=== PATIENT | male | born 1985 | race Caucasian/White ===

== ENCOUNTER 2017-04-09 00:51 | Inpatient (IN) | payer MEDICARE ==
[2017-04-09] MEDS ORDERED: diphenhydrAMINE HCL 50 MG CAPSULE PO PRN (00:55)
[2017-04-09] MEDS ORDERED: MENTHOL/PHENOL 1 EACH UD MM PRN (00:55)
[2017-04-09] MEDS ORDERED: METHADONE HCL 10 MG TABLET (FOR DETOX USE ONLY) PO ONE ×3 (00:55→23:00)
[2017-04-09] MEDS ORDERED: guaiFENesin/D-METHORPHAN HB 10 ML UNIT-DOSE CUPS PO PRN (00:55)
[2017-04-09] MEDS ORDERED: LOPERAMIDE HCL 2 MG CAPSULE PO PRN (00:55)
[2017-04-09] MEDS ORDERED: P-EPHED 60MG/TRIPROLIDI 2.5MG TABLET PO PRN (00:55)
[2017-04-09] MEDS ORDERED: ACETAMINOPHEN 325 MG TABLET (FP) PO PRN (00:55)
[2017-04-09] MEDS ORDERED: MAGNESIUM CITRATE 300 ML BOTTLE PO PRN (00:55)
[2017-04-09] MEDS ORDERED: IBUPROFEN 400 MG TABLET (FP) PO PRN (00:55)
[2017-04-09] MEDS ORDERED: MAGNESIUM HYDROX 2400MG/30ML ORAL SUSPENSION 30 ML CUP PO PRN (00:55)
[2017-04-09] MEDS ORDERED: MAG HYDROX/AL HYDROX/SIMETH 30 ML UNIT-DOSE CUP PO PRN (00:55)
[2017-04-09] MEDS ORDERED: hydrOXYzine PAMOATE 50 MG CAPSULE (FP) PO PRN (01:02)
--- NOTE | 2017-04-09 01:10 | HP ---
COWS - Scale Resting Pulse: 0= [place] 80 or Below Sweatin= Chills/Flushing Restless Observation: 1= Difficult to Sit Still Pupil Size: 1= Pupils >than Normal Bone or Joint Aches: 2= Severe Diffuse Aches Runny Nose/ Eye Tearin= Runny Nose/Eyes GI Upset > 30mins: 2= Nausea/Diarrhea Tremor Observation: 1= Tremor Bude, Not Seen Yawning Observation: 4= Several Times/Minute Anxiety or Irritability: 2=Irritable/Anxious Goose Flesh Skin: 3=Piloerection COWS Score: [address] [facility] Chief Complaint: Withdrawal symptoms Allergies/Adverse Reactions: Allergies Allergy/AdvReac Type Severity Reaction Status Date / Time No Known Allergies Allergy Verified 08/16/12 11:47 History of Present Illness: 32 y.o. man with an extensive history of opiate and cocaine dependence is here seeking detox. He reports he has a five year history of abstinence but states he relapsed recently. He states his last admission to detox and rehab was in 2011 Exam Limitations: No Limitations - Ebola screening Have you traveled outside of the country in the last 21 days: No - Review of Systems Constitutional: Loss of Appetite, Changes in sleep, Unexplained wgt Loss EENT: reports: No Symptoms Reported Respiratory: reports: No Symptoms reported Cardiac: reports: No Symptoms Reported GI: reports: Constipated : reports: No Symptoms Reported Musculoskeletal: reports: No Symptoms Reported Integumentary: reports: No Symptoms Reported Neuro: reports: No Symptoms reported Endocrine: reports: No Symptoms Reported Hematology: reports: No Symptoms Reported Psychiatric: reports: Mood/Affect Appropiate, Anxious, Depressed Other Systems: Reviewed and Negative Patient History - Patient Medical History Hx Anemia: No Hx Asthma: No Hx Chronic Obstructive Pulmonary Disease (COPD): No Hx Cancer: No Hx Cardiac Disorders: No Hx Congestive Heart Failure: No Hx Hypertension: No Hx Hypercholesterolemia: No Hx Pacemaker: No HX Cerebrovascular Accident: No Hx Seizures: No Hx Dementia: No Hx Diabetes: No Hx Gastrointestinal Disorders: No Hx Liver Disease: No Hx Genitourinary Disorders: No Hx Sexually Transmitted Disorders: No Hx Renal Disease (ESRD): No Hx Thyroid Disease: No Hx Human Immunodeficiency Virus (HIV): No Hx Hepatitis C: No Hx Depression: No Hx Suicide Attempt: No Hx Bipolar Disorder: No Hx Schizophrenia: No - Patient Surgical History Past Surgical History: No - PPD History Previous Implant?: Yes Documented Results: Negative w/o proof Implanted On Prior R Admission?: Yes Date: 08/18/12 PPD to be Administered?: Yes - Reproductive History Patient is a Female of Child Bearing Age (11 -55 yrs old): No - Smoking Cessation Smoking history: Current every day smoker Have you smoked in the past 12 months: Yes Aproximately how many cigarettes per day: 20 Hx Chewing Tobacco Use: No Initiated information on smoking cessation: Yes 'Breaking Loose' booklet given: 04/09/17 - Substance & Tx. History Hx Alcohol Use: No Hx Substance Use: Yes Substance Use Type: Cocaine, Heroin, Opiates Hx Substance Use Treatment: Yes (Last detox and rehab in 2011) - Substances Abused Cocaine Route: Inhalation Frequency: Daily Amount used: $200 Age of first use: 24 Date of Last Use: 04/08/17 Heroin Route: Injection Frequency: Daily Amount used: 20 bags Age of first use: 24 Date of Last Use: 04/08/17 Opana Route: Oral Frequency: Daily Amount used: 160mg Age of first use: 24 Date of Last Use: 04/08/17 Family Disease History - Family Disease History Family Disease History: Other: Father (Opiate dependence ) Admission Physical Exam S - Vital Signs Vital Signs: Vital Signs 04/09/17 04/09/17 04/09/17 01:15 01:27 03:30 Temperature 96.8 F L 96.7 F L Pulse Rate 70 55 L Respiratory 16 16 20 Rate Blood Pressure 154/71 125/75 - Physical General Appearance: Yes: Disheveled, Thin, Irritable HEENTM: Yes: Hearing grossly Normal, Normal Voice Respiratory: Yes: Chest Non-Tender, Lungs Clear, Normal Breath Sounds, No Respiratory Distress, No Accessory Muscle Use Neck: Yes: No masses,lesions,Nodules Breast: Yes: Breast Exam Deferred Cardiology: Yes: Regular Rhythm, Regular Rate Abdominal: Yes: Normal Bowel Sounds, Non Tender, Flat, Soft Genitourinary: Yes: Other (No complaints reported) Back: Yes: Normal Inspection Musculoskeletal: Yes: Gait Steady Extremities: Yes: Normal Inspection, Normal Range of Motion, Non-Tender Neurological: Yes: Alert, Normal Mood/Affect, Normal Response Integumentary: Yes: Normal Color, Dry, Warm Lymphatic: Yes: Within Normal Limits - Diagnostic (1) Opioid dependence with withdrawal Current Visit: Yes Status: Chronic (2) Cocaine dependence Current Visit: Yes Status: Chronic (3) Nicotine dependence Current Visit: Yes Status: Chronic Cleared for Admission [facility] - Detox or Rehab [facility] Level of Care: Medically Managed Detox Regimen/Protocol: Methadone [facility] Breath Alcohol Content Breath Alcohol Content: 0 Vital Signs - Vital Signs Vital Signs Refused: No Temperature: 96.8 F Temperature Source: Oral Pulse Rate: 70 Respiratory Rate: 16 Blood Pressure: 154/71 BP Location: Left Arm Blood Pressure Position: Sitting - Height Height: 5 ft 11 in - Weight Weight: 155 lb Weight Measurement Method: Standing Scale Body Mass Index (BMI): 21.6 Urine Drug Screen - Control Is Test Valid: Yes - Results Drug Screen Negative: No Urine Drug Screen Results: GERMÁN-Cocaine, OXY-Oxycodone
[2017-04-09 01:15] VITALS: BMI 21.6
[2017-04-09] MEDS ORDERED: PNEUMOC 13-VAL CONJ-DIP CRM/PF 0.5 ML DISP.SYRIN IM ONE (01:38)
[2017-04-09] MEDS: diazePAM 5 MG TABLET PO PRN ×2 (01:43→10:22)
[2017-04-09 06:04] VITALS: BP 154/71; PULSE 70; TEMP 96.8
[2017-04-09] MEDS ORDERED: NICOTINE 21 MG/24 HOURS TOPICAL PATCH TD SCH (10:00)
[2017-04-09] MEDS ORDERED: PRENATAL VITAMINS W/ FOLIC ACID TABLET (FP) PO SCH (10:00)
[2017-04-09] MEDS: NICOTINE POLACRILEX 4 MG GUM BC PRN ×2 (10:23→14:52)
--- NOTE | 2017-04-09 10:40 | CONSULT ---
[facility] Psychiatric Consult - Data Date of interview: 04/09/17 Admission source: [facility] Identifying data: Mr Whitfield is a 32 years old single male, father of a 3 years old son, employed as a truck driver teamster, living with family seeking detox treatment for opoid and cocaine. Told board writer:"cocaine is my biggest problem." Substance Abuse History: Significant for opoid and cocaine use. He started using heroin, opana and cocaine at age 24. He consumes 20 bags of heroin, 160 mg of opana and $200 worth of cocaine daily. He last used all 3 substances on Medical History: Unremarkable. Smokes cigaretes 1ppd Psychiatric History: Denies history of previous psychiatric treatment Physical/Sexual Abuse/Trauma History: Denies history of emotional, physical or sexual abuse as well as DV relationship Additional Comment: Reports history of 3 arrests including one felony conviction. Denies being on parole/probation Mental Status Exam - Mental Status Exam Alert and Oriented to: Time, Place, Person Cognitive Function: Fair Mood: Depressed Affect: Appropriate Speech Pattern: Clear Voice Loudness: Normal Thought Process: Intact, Goal Oriented Thought Disorder: Not Present Hallucinations: Denies Suicidal Ideation: Denies Homicidal Ideation: Denies Insight/Judgement: Fair Sleep: Poorly Appetite: Good Muscle strength/Tone: Normal Gait/Station: Normal Psychiatric Findings - Problem List ([place] 1, 2,3) (1) Substance induced mood disorder Current Visit: Yes Status: Acute (2) Substance-induced sleep disorder Current Visit: Yes Status: Acute (3) Opioid dependence with withdrawal Current Visit: Yes Status: Chronic (4) Cocaine dependence Current Visit: Yes Status: Chronic (5) Nicotine dependence Current Visit: Yes Status: Chronic - Initial Treatment Plan Initial Treatment Plan: Continue inpatient detoxification
--- NOTE | 2017-04-09 11:38 | PN ---
BHS COWS - Scale Resting Pulse: 0= [place] 80 or Below Sweatin= Chills/Flushing Restless Observation: 1= Difficult to Sit Still Pupil Size: 0= Normal to Room Light Bone or Joint Aches: 2= Severe Diffuse Aches Runny Nose/ Eye Tearin= Runny Nose/Eyes GI Upset > 30mins: 2= Nausea/Diarrhea Tremor Observation of Outstretched Hands: 2= Slight Tremor Visible Yawning Observation: 1= 1-2x During Session Anxiety or Irritability: 2=Irritable/Anxious Goose Flesh Skin: 3=Piloerection COWS Score: 16 BHS Progress Note (SOAP) Subjective: Body Aches, Anxious, Diarrhea, Fatigue, Tremors. Objective: PT. A & O X 2 (DISORIENTED ABOUT DAY / DATE). NO ACUTE DISTRESS. PT. DENIES CHEST PAIN. 04/09/17 11:35 Vital Signs Temperature 96.8 F L 04/09/17 06:03 Pulse Rate 70 04/09/17 06:03 Respiratory Rate 16 04/09/17 06:03 Blood Pressure 154/71 04/09/17 06:03 O2 Sat by Pulse Oximetry (%) ADMISSION LABS NOT YET COLLECTED. 04/09/17 11:38 04/09/17 11:38 Assessment: 04/09/17 11:37 WITHDRAWAL SYMPTOMS. Plan: CONTINUE DETOX.
[2017-04-09] MEDS ORDERED: PNEUMOCOCCAL 23 VACCINE 0.5 ML VIAL IM ONE (12:00)
--- NOTE | 2017-04-09 16:15 | DS ---
[facility] Summary Admission Date: DECLINED CONTINUING WITH DETOX FOR PERSONAL REASONS. STATES THAT HE IS ON SUBOXONE TREATMENT BUT STOPPED TAKING FOR A FEW DAYS BUT HAS BEEN USING HEROIN BEFORE COMING TO DETOX. STATES HE DID NOT MENTION SUBOXONE USE ON ADMISSION. PT REMINDED THE CONSEQUENCIES AND DANGERS OF INAPPROPRIATE USE OF SUBOXONE TREATMENT. ALERT O X 3. NAD. REMINDED TO FOLLOW UP WITH HIS CARE PROVIDER. Discharge Date: 04/09/17 - History Present History: Opioid Dependence Additional Comments: PT DECLINED TO CONTINUE WITH DETOX. PT STATES HE IS ON SUBOXONE TREATMENT BUT HAS NOT BEEN TAKING IT. HAS BEEN USING HEROIN FOR PAST FEW DAYS BEFORE COMING HERE FOR DETOX AND STATES HE FAILED TO INDICATE THIS ON ADMISSION. PT HAS BEEN REMINDED THE DANGERS AND CONSEQUENCIES OF INAPPROPRIATE USE OF SUBOXONE TREATMENT. ALERT O X 3. NAD. Pertinent Past History: DENIES PMHx OR PPSYCH Hx. - Physical Exam Results Vital Signs: Vital Signs Temperature 96.8 F L 04/09/17 06:03 Pulse Rate 70 04/09/17 06:03 Respiratory Rate 16 04/09/17 06:03 Blood Pressure 154/71 04/09/17 06:03 O2 Sat by Pulse Oximetry (%) Pertinent Admission Physical Exam Findings: WITHDRAWAL SX - Treatment Hospital Course: Discharged Condition Good Patient has Accepted a Rehab Referral to: PT STATES HE WILL GO BACK TO HIS SUBOXONE TREATMENT - Medication Discharge Medications: Ambulatory Orders No Home Medications 08/16/12 - Diagnosis (1) Nicotine dependence Status: Acute Qualifiers: Nicotine product type: cigarettes Substance use status: in withdrawal Qualified Code(s): F17.213 - Nicotine dependence, cigarettes, with withdrawal (2) Opioid dependence with withdrawal Status: Acute (3) Cocaine dependence, uncomplicated Status: Acute - AMA Did Patient Leave Against Medical Advice: Yes (AMA)
[2017-04-09] MEDS ORDERED: THIAMINE HCL 100 MG TABLET (FP) PO SCH (22:00)
[2017-04-10] MEDS ORDERED: METHADONE HCL 10 MG TABLET (FOR DETOX USE ONLY) PO ONE (10:00)
[2017-04-11] MEDS ORDERED: METHADONE HCL 5 MG TABLET (FOR DETOX USE ONLY) PO ONE (10:00)
[2017-04-12] MEDS ORDERED: METHADONE HCL 5 MG TABLET (FOR DETOX USE ONLY) PO ONE (10:00)
--- NOTE | 2017-04-12 10:00 | EKG ---
Test Reason : Blood Pressure : / mmHG Vent. Rate : 049 BPM Atrial Rate : 049 BPM P-R Int : 146 ms QRS Dur : 102 ms QT Int : 442 ms P-R-T Axes : 043 077 061 degrees QTc Int : 399 ms SINUS BRADYCARDIA OTHERWISE NORMAL ECG NO PREVIOUS ECGS AVAILABLE Confirmed by OLVIN BARBOZA MD ([id number]) on 04/12/2017 10:00:01 AM Referred By: Confirmed By:OLVIN BARBOZA MD
[2017-04-13] MEDS ORDERED: METHADONE HCL 10 MG TABLET (FOR DETOX USE ONLY) PO ONE (10:00)
[2017-04-14] MEDS ORDERED: METHADONE HCL 5 MG TABLET (FOR DETOX USE ONLY) PO ONE (06:00)
== END 2017-04-09 15:58 | disposition left against medical advice (07) | DRG 770 ==
LOC: YASAS 00:51 → Y3N 00:53
PROVIDERS: ADMIT Internal Medicine; ATTEND Internal Medicine
PROC: HZ2ZZZZ Detoxification Services for Substance Abuse Treatment (ICD-10-PCS; principal; 2017-04-09)
DX: F11.23 Opioid dependence with withdrawal (principal); F14.20 Cocaine dependence, uncomplicated; F17.210 Nicotine dependence, cigarettes, uncomplicated; F19.282 Other psychoactive substance dependence with psychoactive substance-induced sleep disorder
CPT/HCPCS: 93005; 93010

== ENCOUNTER 2017-06-21 19:34 | Inpatient (IN) | payer SELFPAY ==
[2017-06-21 20:03] VITALS: BMI 21.9
--- NOTE | 2017-06-21 20:34 | HP ---
COWS - Scale Resting Pulse: 1= [place] 81-100 Sweatin= Chills/Flushing Restless Observation: 3= Extraneous Movement Pupil Size: 1= Pupils >than Normal Bone or Joint Aches: 2= Severe Diffuse Aches Runny Nose/ Eye Tearin= Runny Nose/Eyes GI Upset > 30mins: 3= Vomiting/Diarrhea Tremor Observation: 2= Slight Tremor Visible Yawning Observation: 1= 1-2x During Session Anxiety or Irritability: 2=Irritable/Anxious Goose Flesh Skin: 3=Piloerection COWS Score: 21 Admission ROS S - [facility] Chief Complaint: WITHDRAWAL SYMPTOMS Allergies/Adverse Reactions: Allergies Allergy/AdvReac Type Severity Reaction Status Date / Time No Known Allergies Allergy Verified 08/16/12 11:47 History of Present Illness: 32 Y.O. MAN WITH A HISTORY OF HEROIN AND COCAINE DEPENDENCE IS HERE SEEKING DETOX. HE WAS LAST HERE FOR DETOX IN 03/2017 BUT LEFT AMA AFTER ONE DAY. HE WAS PREVIOUSLY PRESCRIBED SUBOXONE AND IT WAS LAST FILLED ON 04/07/17 BUT REPORTS HE COULD NOT AFFORD THE MEDICATION AND STARTED USING HEROIN AGAIN. HE HAS AN EXTENSIVE HISTORY OF HEROIN DEPENDENCE AND REPORTS HAVING A 4 YEAR HISTORY OF ABSTINENCE WHILE ON SUBOXONE BUT STATES HE RELAPSED RECENTLY IN March. Exam Limitations: No Limitations - Ebola screening Have you traveled outside of the country in the last 21 days: No Have you had contact with anyone from an Ebola affected area: No Have you been sick,other than usual withdrawal symptoms: No Do you have a fever: No - Review of Systems Constitutional: Chills, Diaphoresis, Loss of Appetite, Changes in sleep EENT: reports: Tearing, Nose Congestion Respiratory: reports: No Symptoms reported Cardiac: reports: No Symptoms Reported GI: reports: Poor Appetite : reports: No Symptoms Reported Musculoskeletal: reports: No Symptoms Reported Integumentary: reports: No Symptoms Reported Neuro: reports: No Symptoms reported Endocrine: reports: No Symptoms Reported Hematology: reports: No Symptoms Reported Psychiatric: reports: Judgement Intact, Mood/Affect Appropiate, Anxious Other Systems: Reviewed and Negative Patient History - Patient Medical History Hx Anemia: No Hx Asthma: No Hx Chronic Obstructive Pulmonary Disease (COPD): No Hx Cancer: No Hx Cardiac Disorders: No Hx Congestive Heart Failure: No Hx Hypertension: No Hx Hypercholesterolemia: No Hx Pacemaker: No HX Cerebrovascular Accident: No Hx Seizures: No Hx Dementia: No Hx Diabetes: No Hx Gastrointestinal Disorders: No Hx Liver Disease: No Hx Genitourinary Disorders: No Hx Sexually Transmitted Disorders: No Hx Renal Disease (ESRD): No Hx Thyroid Disease: No Hx Human Immunodeficiency Virus (HIV): No Hx Hepatitis C: No Hx Depression: No Hx Suicide Attempt: No Hx Bipolar Disorder: No Hx Schizophrenia: No - Patient Surgical History Past Surgical History: No Hx Neurologic Surgery: No Hx Cataract Extraction: No Hx Cardiac Surgery: No Hx Lung Surgery: No Hx Breast Surgery: No Hx Breast Biopsy: No Hx Abdominal Surgery: No Hx Appendectomy: No Hx Cholecystectomy: No Hx Genitourinary Surgery: No Hx Section: No Hx Orthopedic Surgery: No Anesthesia Reaction: No - PPD History Previous Implant?: No Documented Results: Negative w/o proof Date: 08/18/12 PPD to be Administered?: Yes - Reproductive History Patient is a Female of Child Bearing Age (11 -55 yrs old): No - Smoking Cessation Smoking history: Current every day smoker Have you smoked in the past 12 months: Yes Aproximately how many cigarettes per day: 40 Hx Chewing Tobacco Use: No Initiated information on smoking cessation: No 'Breaking Loose' booklet given: 06/21/17 - Substance & Tx. History Hx Alcohol Use: No Hx Substance Use: Yes Substance Use Type: Cocaine, Heroin Hx Substance Use Treatment: Yes (DETOX: 03/2017-LEFT AFTER ONE DAY. REHAB: 2011) - Substances Abused Heroin Route: Inhalation Frequency: Daily Amount used: 20 BAGS Age of first use: 24 Date of Last Use: 06/20/17 Crack Route: Smoking Frequency: Daily Amount used: 1gm Age of first use: 31 Date of Last Use: 06/20/17 Family Disease History - Family Disease History Family Disease History: Other: Father (Opiate dependence ) Admission Physical Exam BHS - Vital Signs Vital Signs: Vital Signs - 24 hr 06/21/17 19:53 Temperature 97.2 F L Pulse Rate 81 Respiratory 18 Rate Blood Pressure 134/79 - Physical General Appearance: Yes: Disheveled, Sweating, Anxious HEENTM: Yes: Hearing grossly Normal, Normocephalic, Normal Voice Respiratory: Yes: Chest Non-Tender, Lungs Clear, Normal Breath Sounds, No Respiratory Distress, No Accessory Muscle Use Neck: Yes: No masses,lesions,Nodules, Trachea in good position Breast: Yes: Breast Exam Deferred Cardiology: Yes: Regular Rhythm, Regular Rate Abdominal: Yes: Normal Bowel Sounds, Non Tender, Flat, Soft Genitourinary: Yes: Other (NO COMPLAINTS REPORTED) Back: Yes: Normal Inspection Musculoskeletal: Yes: full range of Motion, Gait Steady, Pelvis Stable Extremities: Yes: Normal Capillary Refill, Normal Inspection, Normal Range of Motion, Non-Tender Neurological: Yes: Alert, Motor Strength 5/5, Normal Mood/Affect, Normal Response Integumentary: Yes: Normal Color, Dry, Warm Lymphatic: Yes: Within Normal Limits - Diagnostic (1) Cocaine dependence, uncomplicated Current Visit: Yes Status: Chronic (2) Nicotine dependence Current Visit: Yes Status: Chronic Qualifiers: Nicotine product type: cigarettes Substance use status: in withdrawal Qualified Code(s): F17.213 - Nicotine dependence, cigarettes, with withdrawal; F17.213 - Nicotine dependence, cigarettes, with withdrawal (3) Opioid dependence with withdrawal Current Visit: Yes Status: Chronic Cleared for Admission [facility] - Detox or Rehab [facility] Level of Care: Medically Managed Detox Regimen/Protocol: Methadone [facility] Breath Alcohol Content Breath Alcohol Content: 0 Urine Drug Screen - Results Drug Screen Negative: No Urine Drug Screen Results: GERMÁN-Cocaine, OPI-Opiates
[2017-06-21] MEDS ORDERED: P-EPHED 60MG/TRIPROLIDI 2.5MG TABLET PO PRN (20:48)
[2017-06-21] MEDS ORDERED: IBUPROFEN 400 MG TABLET (FP) PO PRN (20:48)
[2017-06-21] MEDS ORDERED: MAG HYDROX/AL HYDROX/SIMETH 30 ML UNIT-DOSE CUP PO PRN (20:48)
[2017-06-21] MEDS ORDERED: LOPERAMIDE HCL 2 MG CAPSULE PO PRN (20:48)
[2017-06-21] MEDS ORDERED: hydrOXYzine PAMOATE 50 MG CAPSULE (FP) PO PRN (20:48)
[2017-06-21] MEDS ORDERED: guaiFENesin/D-METHORPHAN HB 10 ML UNIT-DOSE CUPS PO PRN (20:48)
[2017-06-21] MEDS ORDERED: ACETAMINOPHEN 325 MG TABLET (FP) PO PRN (20:48)
[2017-06-21] MEDS ORDERED: MAGNESIUM HYDROX 2400MG/30ML ORAL SUSPENSION 30 ML CUP PO PRN (20:48)
[2017-06-21] MEDS ORDERED: MENTHOL/PHENOL 1 EACH UD MM PRN (20:48)
[2017-06-21] MEDS ORDERED: METHADONE HCL 10 MG TABLET (FOR DETOX USE ONLY) PO ONE ×2 (20:48→23:00)
[2017-06-21] MEDS ORDERED: diphenhydrAMINE HCL 50 MG CAPSULE PO PRN (20:48)
[2017-06-21] MEDS ORDERED: MAGNESIUM CITRATE 300 ML BOTTLE PO PRN (20:48)
[2017-06-21] MEDS: diazePAM 5 MG TABLET PO PRN (21:50)
[2017-06-21] MEDS: NICOTINE POLACRILEX 4 MG GUM BUC PRN (21:54)
[2017-06-21] MEDS: THIAMINE HCL 100 MG TABLET (FP) PO SCH (22:09)
[2017-06-22] MEDS ORDERED: METHADONE HCL 10 MG TABLET (FOR DETOX USE ONLY) PO ONE (10:00)
[2017-06-22 10:09] LABS: MCH 29.1 pg (25.7-33.7); MCHC 33.2 g/dl (32.0-35.9); MEAN CELL VOLUME 87.7 fl (80-96); MEAN PLT VOLUME 8.5 fl (7.5-11.1); PLATELET COUNT 352 K/MM3 (134-434); RDW 13.3 % (11.9-15.9); WHITE BLOOD COUNT 8.4 K/mm3 (4.0-10.0)
[2017-06-22 10:15] LABS: ALBUMIN 3.5 g/dl (3.4-5.0); ANION GAP 6 (8-16); CALCIUM 8.7 mg/dL (8.5-10.1); CO2 30 mmol/L (21-32); CREATININE 0.9 mg/dL (0.7-1.3); GLUCOSE,RANDOM 94 mg/dL (74-106); SGOT/AST 10 U/L (15-37); SGPT/ALT 20 U/L (12-78)
[2017-06-22 10:16] LABS: ALK PHOS 64 U/L (45-117); BILIRUBIN,TOTAL 0.4 mg/dL (0.2-1.0)
[2017-06-22] MEDS: PRENATAL VITAMINS W/ FOLIC ACID TABLET (FP) PO SCH (11:02)
[2017-06-22] MEDS: NICOTINE 21 MG/24 HOURS TOPICAL PATCH TD SCH (11:03)
[2017-06-22] MEDS: diazePAM 5 MG TABLET PO PRN ×3 (11:03→22:06)
[2017-06-22 11:21] LABS: HIV 1 & 2 AB NEGATIVE; HIV 1 AGp24 NEGATIVE
--- NOTE | 2017-06-22 11:35 | CONSULT ---
[facility] Psychiatric Consult - Data Date of interview: 06/22/17 Admission source: [facility] Identifying data: Readmission to [facility] for this 32 y/o male seking detox treatment on for heroin and cocaine dependence.Patient is single,a father of one,domiciled and currently employed. Substance Abuse History: Discussed with patient in this session.Mr Whitfield confirms this pattern of substance abuse. Smoking Cessation. Smoking history: Current every day smoker. Have you smoked in the past 12 months: Yes. Aproximately how many cigarettes per day: 40. Hx Chewing Tobacco Use: No. Initiated information on smoking cessation: No. 'Breaking Loose' booklet given : 06/21/17. - Substance & Tx. History. Hx Alcohol Use: No. Hx Substance Use: Yes. Substance Use Type: Cocaine, Heroin. Hx Substance Use Treatment: Yes ( DETOX: 03/2017-LEFT AFTER ONE DAY. REHAB: 08/2012). - Substances Abused. Heroin. Route: Inhalation. Frequency: Daily. Amount used: 20 BAGS. Age of first use: 24. Date of Last Use: 06/20/17. Crack. Route: Smoking. Frequency: Daily. Amount used: 1gm. Age of first use: 31. Date of Last Use: 06/20/17 Medical History: Patient endorses good general health. Psychiatric History: Patient denies. Physical/Sexual Abuse/Trauma History: No reported history of abuse. Additional Comment: Urine Drug Screen Results: GERMÁN-Cocaine, OPI-Opiates.Noted. Mental Status Exam - Mental Status Exam Alert and Oriented to: Time, Place, Person Cognitive Function: Good Patient Appearance: Well Groomed Mood: Hopeful, Euthymic Affect: Appropriate, Normal Range Patient Behavior: Fatigued, Appropriate, Cooperative Speech Pattern: Clear Voice Loudness: Normal Thought Process: Intact, Goal Oriented Thought Disorder: Not Present Hallucinations: Denies Suicidal Ideation: Denies Homicidal Ideation: Denies Insight/Judgement: Poor Sleep: Well Appetite: Good Muscle strength/Tone: Normal Gait/Station: Normal Psychiatric Findings - Problem List ([place] 1, 2,3) (1) Opioid dependence with withdrawal Current Visit: Yes Status: Acute (2) Cocaine dependence, uncomplicated Current Visit: Yes Status: Acute (3) Nicotine dependence Current Visit: Yes Status: Acute Qualifiers: Nicotine product type: cigarettes Substance use status: in withdrawal Qualified Code(s): F17.213 - Nicotine dependence, cigarettes, with withdrawal; F17.213 - Nicotine dependence, cigarettes, with withdrawal (4) Substance induced mood disorder Current Visit: Yes Status: Acute - Initial Treatment Plan Initial Treatment Plan: Psychoeducation.Detoxification.Observation.
--- NOTE | 2017-06-22 12:02 | PN ---
BHS COWS - Scale Resting Pulse: 0= [place] 80 or Below Sweatin= Chills/Flushing Restless Observation: 3= Extraneous Movement Pupil Size: 2= Moderately Dilated Bone or Joint Aches: 2= Severe Diffuse Aches Runny Nose/ Eye Tearin= Runny Nose/Eyes GI Upset > 30mins: 3= Vomiting/Diarrhea Tremor Observation of Outstretched Hands: 2= Slight Tremor Visible Yawning Observation: 1= 1-2x During Session Anxiety or Irritability: 2=Irritable/Anxious Goose Flesh Skin: 0=Smooth Skin COWS Score: 18 BHS Progress Note (SOAP) Subjective: ALERT,IRRITABLE,ANXIOUS,INTERRUPTED SLEEP,TREMOR,PAIN IN THE BODY JOINT AND BACK Objective: 06/22/17 12:00 Vital Signs Temperature 97.2 F L 06/22/17 10:03 Pulse Rate 69 06/22/17 10:03 Respiratory Rate 18 06/22/17 10:03 Blood Pressure 127/71 06/22/17 10:03 O2 Sat by Pulse Oximetry (%) EKG NSR,NORMAL ECG Laboratory Last Values WBC 8.4 K/mm3 (4.0-10.0) 06/22/17 07:00 RBC 4.61 M/mm3 (4.00-5.60) 06/22/17 07:00 Hgb 13.4 GM/dL (11.7-16.9) 06/22/17 07:00 Hct 40.5 % (35.4-49) 06/22/17 07:00 MCV 87.7 fl (80-96) 06/22/17 07:00 MCH 29.1 pg (25.7-33.7) 06/22/17 07:00 MCHC 33.2 g/dl (32.0-35.9) 06/22/17 07:00 RDW 13.3 % (11.9-15.9) 06/22/17 07:00 Plt Count 352 K/MM3 (134-434) D 06/22/17 07:00 MPV 8.5 fl (7.5-11.1) D 06/22/17 07:00 Sodium 141 mmol/L (136-145) 06/22/17 07:00 Potassium 4.3 mmol/L (3.5-5.1) 06/22/17 07:00 Chloride 105 mmol/L (98-107) 06/22/17 07:00 Carbon Dioxide 30 mmol/L (21-32) 06/22/17 07:00 Anion Gap 6 (8-16) L 06/22/17 07:00 BUN 23 mg/dL (7-18) H D 06/22/17 07:00 Creatinine 0.9 mg/dL (0.7-1.3) D 06/22/17 07:00 Creat Clearance w eGFR > 60 (>60) 06/22/17 07:00 Random Glucose 94 mg/dL (74-106) 06/22/17 07:00 Calcium 8.7 mg/dL (8.5-10.1) 06/22/17 07:00 Total Bilirubin 0.4 mg/dL (0.2-1.0) D 06/22/17 07:00 AST 10 U/L (15-37) L D 06/22/17 07:00 ALT 20 U/L (12-78) D 06/22/17 07:00 Alkaline Phosphatase 64 U/L (45-117) 06/22/17 07:00 Total Protein 7.0 g/dl (6.4-8.2) 06/22/17 07:00 Albumin 3.5 g/dl (3.4-5.0) 06/22/17 07:00 HIV 1&2 Antibody Screen Negative 06/22/17 07:00 HIV P24 Antigen Negative 06/22/17 07:00 Assessment: 06/22/17 12:01 WITHDRAWAL SYMPTOM Plan: CONTINUE DETOX
[2017-06-22] MEDS: NICOTINE POLACRILEX 4 MG GUM BUC PRN ×2 (18:01→22:08)
[2017-06-22] MEDS: THIAMINE HCL 100 MG TABLET (FP) PO SCH (22:06)
[2017-06-23] MEDS: diazePAM 5 MG TABLET PO PRN ×3 (09:09→22:35)
[2017-06-23] MEDS ORDERED: METHADONE HCL 5 MG TABLET (FOR DETOX USE ONLY) PO ONE (10:00)
[2017-06-23] MEDS: NICOTINE 21 MG/24 HOURS TOPICAL PATCH TD SCH (10:49)
[2017-06-23] MEDS: PRENATAL VITAMINS W/ FOLIC ACID TABLET (FP) PO SCH (10:50)
[2017-06-23] MEDS: NICOTINE POLACRILEX 4 MG GUM BUC PRN ×2 (10:51→13:52)
--- NOTE | 2017-06-23 12:15 | PN ---
S CIWA - CIWA Score Nausea/Vomitin Muscle Tremors: 3 Anxiety: 2 Agitation: 2 Paroxysmal Sweats: 1-Minimal Palms Moist Orientation: 0-Oriented Tacttile Disturbances: 1-Very Mild Itch/Numbness Auditory Disturbances: 1-Very Mild Visual Disturbances: 0-None Headache: 2-Mild CIWA-Ar Total Score: 15 BHS COWS - Scale Resting Pulse: 0= [place] 80 or Below Sweatin= Chills/Flushing Restless Observation: 3= Extraneous Movement Pupil Size: 1= Pupils >than Normal Bone or Joint Aches: 2= Severe Diffuse Aches Runny Nose/ Eye Tearin= Nasal Congestion GI Upset > 30mins: 2= Nausea/Diarrhea Tremor Observation of Outstretched Hands: 2= Slight Tremor Visible Yawning Observation: 1= 1-2x During Session Anxiety or Irritability: 2=Irritable/Anxious Goose Flesh Skin: 0=Smooth Skin COWS Score: 15 BHS Progress Note (SOAP) Subjective: alert,irritable,anxious,interrupted sleep,pain in the body and back Objective: 06/23/17 12:13 Vital Signs Temperature 96.9 F L 06/23/17 10:55 Pulse Rate 74 06/23/17 10:55 Respiratory Rate 20 06/23/17 10:55 Blood Pressure 148/85 06/23/17 10:55 O2 Sat by Pulse Oximetry (%) Laboratory Last Values WBC 8.4 K/mm3 (4.0-10.0) 06/22/17 07:00 RBC 4.61 M/mm3 (4.00-5.60) 06/22/17 07:00 Hgb 13.4 GM/dL (11.7-16.9) 06/22/17 07:00 Hct 40.5 % (35.4-49) 06/22/17 07:00 MCV 87.7 fl (80-96) 06/22/17 07:00 MCH 29.1 pg (25.7-33.7) 06/22/17 07:00 MCHC 33.2 g/dl (32.0-35.9) 06/22/17 07:00 RDW 13.3 % (11.9-15.9) 06/22/17 07:00 Plt Count 352 K/MM3 (134-434) D 06/22/17 07:00 MPV 8.5 fl (7.5-11.1) D 06/22/17 07:00 Sodium 141 mmol/L (136-145) 06/22/17 07:00 Potassium 4.3 mmol/L (3.5-5.1) 06/22/17 07:00 Chloride 105 mmol/L (98-107) 06/22/17 07:00 Carbon Dioxide 30 mmol/L (21-32) 06/22/17 07:00 Anion Gap 6 (8-16) L 06/22/17 07:00 BUN 23 mg/dL (7-18) H D 06/22/17 07:00 Creatinine 0.9 mg/dL (0.7-1.3) D 06/22/17 07:00 Creat Clearance w eGFR > 60 (>60) 06/22/17 07:00 Random Glucose 94 mg/dL (74-106) 06/22/17 07:00 Calcium 8.7 mg/dL (8.5-10.1) 06/22/17 07:00 Total Bilirubin 0.4 mg/dL (0.2-1.0) D 06/22/17 07:00 AST 10 U/L (15-37) L D 06/22/17 07:00 ALT 20 U/L (12-78) D 06/22/17 07:00 Alkaline Phosphatase 64 U/L (45-117) 06/22/17 07:00 Total Protein 7.0 g/dl (6.4-8.2) 06/22/17 07:00 Albumin 3.5 g/dl (3.4-5.0) 06/22/17 07:00 RPR Titer Nonreactive (NONREACTIVE) 06/22/17 07:00 Hepatitis C Antibody <0.1 s/co ratio (0.0-0.9) 06/21/17 07:00 HIV 1&2 Antibody Screen Negative 06/22/17 07:00 HIV P24 Antigen Negative 06/22/17 07:00 Assessment: 06/23/17 12:14 withdrawal symptom Plan: continue detox,less withdrawal,medication adjust
--- NOTE | 2017-06-23 13:16 | EKG ---
Test Reason : Blood Pressure : / mmHG Vent. Rate : 075 BPM Atrial Rate : 075 BPM P-R Int : 160 ms QRS Dur : 100 ms QT Int : 376 ms P-R-T Axes : 069 077 060 degrees QTc Int : 419 ms NORMAL SINUS RHYTHM NORMAL ECG WHEN COMPARED WITH ECG OF 09-APR-2017 00:51, VENT. RATE HAS INCREASED BY 26 BPM Confirmed by RUBEN SAUCEDO MD ([id number]) on 06/23/2017 1:16:15 PM Referred By: Confirmed By:RUBEN SAUCEDO MD
[2017-06-23 15:54] LABS: PH,URINE 7.5 (5.0-8.0); URINE APPEARANCE CLEAR; URINE BILIRUBIN NEGATIVE (NEGATIVE); URINE BLOOD NEGATIVE (NEGATIVE); URINE COLOR LT. YELLOW; URINE GLUCOSE (UA) NEGATIVE (NEGATIVE); URINE KETONE NEGATIVE (NEGATIVE); URINE NITRITE NEGATIVE (NEGATIVE); URINE PROTEIN NEGATIVE (NEGATIVE); URINE UROBILINOGEN 0.2 mg/dL (0.2-1.0)
[2017-06-23 20:21] LABS: URINE LEUK ESTERASE Negative (NEGATIVE)
[2017-06-23] MEDS: THIAMINE HCL 100 MG TABLET (FP) PO SCH (22:37)
--- NOTE | 2017-06-24 08:31 | PN ---
S Progress Note (SOAP) Subjective: alert,irritable,anxious,interrupted sleep Objective: 06/24/17 08:30 Vital Signs Temperature 96.4 F L 06/24/17 06:00 Pulse Rate 60 06/24/17 06:00 Respiratory Rate 18 06/24/17 06:00 Blood Pressure 129/79 06/24/17 06:00 O2 Sat by Pulse Oximetry (%) Assessment: 06/24/17 08:31 withdrawal symptom Plan: continue detox,discharge in am
[2017-06-24] MEDS: NICOTINE POLACRILEX 4 MG GUM BUC PRN (09:55)
[2017-06-24] MEDS: diazePAM 5 MG TABLET PO PRN (09:56)
[2017-06-24] MEDS: PRENATAL VITAMINS W/ FOLIC ACID TABLET (FP) PO SCH (09:56)
[2017-06-24] MEDS: NICOTINE 21 MG/24 HOURS TOPICAL PATCH TD SCH (09:58)
[2017-06-24] MEDS ORDERED: METHADONE HCL 5 MG TABLET (FOR DETOX USE ONLY) PO ONE (10:00)
[2017-06-24] MEDS ORDERED: METHADONE HCL 10 MG TABLET (FOR DETOX USE ONLY) PO ONE (10:00)
[2017-06-24 11:01] VITALS: BP 115/81; PULSE 89; TEMP 97.5
--- NOTE | 2017-06-24 11:18 | PN ---
BHS Progress Note (SOAP) Subjective: alert,irritable,anxious,interrupted sleep,pain in the body and back Objective: 06/24/17 11:17 Vital Signs Temperature 97.5 F L 06/24/17 11:00 Pulse Rate 89 06/24/17 11:00 Respiratory Rate 16 06/24/17 11:00 Blood Pressure 115/81 06/24/17 11:00 O2 Sat by Pulse Oximetry (%) withdrawal symptom Assessment: 06/24/17 11:17 withdrawal symptom Plan: continue detox
--- NOTE | 2017-06-24 11:22 | PN ---
S Progress Note Note: patient did not want to complete treatment,signed release ama,seen by counselor
--- NOTE | 2017-06-24 11:26 | DS ---
[facility] Detox Discharge Summary Admission Date: 06/21/17 Discharge Date: 06/24/17 - History Present History: Cocaine Dependence, Opioid Dependence Additional Comments: patient did not want to complete treatment,signed release ama,did not want to wait Pertinent Past History: nicotine dependence - Physical Exam Results Vital Signs: Vital Signs Temperature 97.5 F L 06/24/17 11:00 Pulse Rate 89 06/24/17 11:00 Respiratory Rate 16 06/24/17 11:00 Blood Pressure 115/81 06/24/17 11:00 O2 Sat by Pulse Oximetry (%) Pertinent Admission Physical Exam Findings: withdrawal symptom - AMA Did Patient Leave Against Medical Advice: Yes
[2017-06-25] MEDS ORDERED: METHADONE HCL 5 MG TABLET (FOR DETOX USE ONLY) PO ONE (06:00)
[2017-06-25] MEDS ORDERED: METHADONE HCL 10 MG TABLET (FOR DETOX USE ONLY) PO ONE (10:00)
[2017-06-26] MEDS ORDERED: METHADONE HCL 5 MG TABLET (FOR DETOX USE ONLY) PO ONE (06:00)
== END 2017-06-24 11:45 | disposition left against medical advice (07) | DRG 770 ==
LOC: YASAS 19:34 → Y6N 20:29
PROVIDERS: ADMIT Internal Medicine; ATTEND Internal Medicine
PROC: HZ2ZZZZ Detoxification Services for Substance Abuse Treatment (ICD-10-PCS; principal; 2017-06-21)
DX: F11.23 Opioid dependence with withdrawal (principal); F14.20 Cocaine dependence, uncomplicated; F17.213 Nicotine dependence, cigarettes, with withdrawal; F19.24 Other psychoactive substance dependence with psychoactive substance-induced mood disorder
CPT/HCPCS: 36415; 80053; 81003; 85027; 86593; 86803; 87389; 93005; 93010

== ENCOUNTER 2018-12-07 13:15 | Inpatient (IN) | payer OTHER ==
[2018-12-07 13:26] VITALS: BMI 22.0
--- NOTE | 2018-12-07 16:39 | HP ---
COWS - Scale Resting Pulse: 1= [place] 81-100 Sweatin=Flushed/Facial Moisture Restless Observation: 3= Extraneous Movement Pupil Size: 1= Pupils >than Normal Bone or Joint Aches: 2= Severe Diffuse Aches Runny Nose/ Eye Tearin= Runny Nose/Eyes GI Upset > 30mins: 0= None Tremor Observation: 1= Tremor [place], Not Seen Yawning Observation: 1= 1-2x During Session Anxiety or Irritability: 2=Irritable/Anxious Goose Flesh Skin: 3=Piloerection COWS Score: 18 CIWA Score - Admission Criteria OASAS Guidelines: Admission for Medically Managed Detox: Requires at least one of the followin. CIWA greater than 12 2. Seizures within the past 24 hours 3. Delirium tremens within the past 24 hours 4. Hallucinations within the past 24 hours 5. Acute intervention needed for co occurring medical disorder 6. Acute intervention needed for co occurring psychiatric disorder 7. Severe withdrawal that cannot be handled at a lower level of care (continued vomiting, continued diarrhea, abnormal vital signs) requiring intravenous medication and/or fluids 8. Admission ROS [facility] Chief Complaint: 33 yo no medical problems, with h/o heroin use since . Was without using for several years from about age 24 to about age 28. Since then pt states has been using heroin IV. Last time in detox was about 18 months- relapsed shortly after. Was on Suboxone for a few months but does not like it as much. Would like to be in a methadone program. Heroin- uses 30 bags/day IV Cocaine- 1 gram/day DUR- no controlled substances Utox: leticia, met, fen, opi,oxy, fen, TRISTEN- neg pt in severe withdrawal- will give 20mg STAT and 20mg tonight and 30mg tomorrow and 20mg the day after etc... Allergies/Adverse Reactions: Allergies Allergy/AdvReac Type Severity Reaction Status Date / Time No Known Allergies Allergy Verified 12/07/18 15:39 Exam Limitations: No Limitations - Ebola screening Have you traveled outside of the country in the last 21 days: No Have you had contact with anyone from an Ebola affected area: No Have you been sick,other than usual withdrawal symptoms: No Do you have a fever: No - Review of Systems Constitutional: No Symptoms Reported Integumentary: reports: Other (abscess and cellulitis- was in hospital for a 2 days, left 3 days) Patient History - Patient Medical History Hx Anemia: No Hx Asthma: No Hx Chronic Obstructive Pulmonary Disease (COPD): No Hx Cancer: No Hx Cardiac Disorders: No Hx Congestive Heart Failure: No Hx Hypertension: No Hx Hypercholesterolemia: No Hx Pacemaker: No HX Cerebrovascular Accident: No Hx Seizures: No Hx Dementia: No Hx Diabetes: No Hx Gastrointestinal Disorders: No Hx Liver Disease: No Hx Genitourinary Disorders: No Hx Sexually Transmitted Disorders: No Hx Renal Disease (ESRD): No Hx Thyroid Disease: No Hx Human Immunodeficiency Virus (HIV): No Hx Hepatitis C: No Hx Depression: No Hx Suicide Attempt: No Hx Bipolar Disorder: No Hx Schizophrenia: No - Patient Surgical History Past Surgical History: No Hx Neurologic Surgery: No Hx Cataract Extraction: No Hx Cardiac Surgery: No Hx Lung Surgery: No Hx Breast Surgery: No Hx Breast Biopsy: No Hx Abdominal Surgery: No Hx Appendectomy: No Hx Cholecystectomy: No Hx Genitourinary Surgery: No Hx Section: No Hx Orthopedic Surgery: No Anesthesia Reaction: No - PPD History Previous Implant?: Yes Documented Results: Negative w/proof Date: 06/23/17 PPD to be Administered?: Yes - Reproductive History Patient : No - Smoking Cessation Smoking history: Current every day smoker Have you smoked in the past 12 months: Yes Aproximately how many cigarettes per day: 20 Hx Chewing Tobacco Use: No Initiated information on smoking cessation: Yes 'Breaking Loose' booklet given: 12/07/18 - Substances Abused Heroin Route: Injection Frequency: Daily Amount used: 30 bags Age of first use: 21 Date of Last Use: 12/06/18 Alcohol Route: Oral Frequency: Daily Amount used: 1/5 vodka Age of first use: 15 Date of Last Use: 12/07/18 Cocaine Route: Smoking Frequency: Daily Amount used: 1 gram Age of first use: 21 Date of Last Use: 12/06/18 Family Disease History - Family Disease History Family Disease History: Other: Father (Opiate dependence ) Admission Physical Exam B[facility] - Vital Signs Vital Signs: Vital Signs - 24 hr 12/07/18 13:22 Temperature 97.5 F L Pulse Rate 77 Respiratory 18 Rate Blood Pressure 152/83 - Physical General Appearance: Yes: Within Normal Limits, Anxious HEENTM: Yes: Within Normal Limits Respiratory: Yes: Within Normal Limits Neck: Yes: Within Normal Limits Abdominal: Yes: Within Normal Limits, Normal Bowel Sounds Back: Yes: Within Normal Limits Musculoskeletal: Yes: Within Normal Limits Extremities: Yes: Other (cellulitis and abscess L wrist area- redness- pt with bandage to area) Neurological: Yes: Within Normal Limits, Other Integumentary: Yes: Other (cellulitis and abscess L wrist area- redness- pt with bandage to area) - Diagnostic (1) Abscess Current Visit: Yes Status: Acute (2) Opioid dependence with withdrawal Current Visit: No Status: Acute BHS Breath Alcohol Content Breath Alcohol Content: 0 Urine Drug Screen - Results Drug Screen Negative: No Urine Drug Screen Results: LETICIA-Cocaine, OPI-Opiates, MET-Methamphetamine, OXY- Oxycodone, FEN-Fentanyl Inpatient Rehab Admission - Rehab Decision to Admit Inpatient rehab admission?: No
[2018-12-07] MEDS ORDERED: MAGNESIUM CITRATE 300 ML BOTTLE PO PRN (16:46)
[2018-12-07] MEDS ORDERED: MENTHOL/PHENOL 1 EACH UD MM PRN (16:46)
[2018-12-07] MEDS ORDERED: MAG HYDROX/AL HYDROX/SIMETH 30 ML UNIT-DOSE CUP PO PRN (16:46)
[2018-12-07] MEDS ORDERED: BISMUTH SUBSALICYLATE 524 MG/30 ML UD PO PRN (16:46)
[2018-12-07] MEDS ORDERED: MELATONIN 5 MG TABLETS PO PRN (16:46)
[2018-12-07] MEDS ORDERED: ACETAMINOPHEN 325 MG TABLET (FP) PO PRN ×2 (16:46)
[2018-12-07] MEDS ORDERED: traZODone HCL 50 MG TABLET (FP) PO PRN (16:46)
[2018-12-07] MEDS ORDERED: MAGNESIUM HYDROX 2400MG/30ML ORAL SUSPENSION 30 ML CUP PO PRN (16:46)
[2018-12-07] MEDS ORDERED: IBUPROFEN 400 MG TABLET (FP) PO PRN (16:46)
[2018-12-07] MEDS ORDERED: ONDANSETRON *ODT* 4 MG TABLET SL PRN (16:46)
[2018-12-07] MEDS ORDERED: DICYCLOMINE HCL 10 MG CAPSULE PO PRN (16:46)
[2018-12-07] MEDS ORDERED: hydrOXYzine PAMOATE 25 MG CAPSULE (FP) PO PRN (16:46)
[2018-12-07] MEDS ORDERED: METHADONE HCL 10 MG TABLET (FOR DETOX USE ONLY) PO ONE ×2 (17:30→23:00)
[2018-12-07] MEDS: AMOX TR/POT CLAV 875MG/125MG TABLETS (FP) PO SCH (19:16)
[2018-12-07] MEDS: THIAMINE HCL 100 MG TABLET (FP) PO SCH (22:06)
[2018-12-07] MEDS: cloNIDine HCL 0.1 MG TABLET PO PRN (22:06)
[2018-12-08] MEDS: hydrOXYzine PAMOATE 50 MG CAPSULE (FP) PO PRN ×4 (04:25→23:14)
[2018-12-08] MEDS: AMOX TR/POT CLAV 875MG/125MG TABLETS (FP) PO SCH ×2 (08:09→17:11)
[2018-12-08] MEDS: diazePAM 5 MG TABLET PO PRN ×3 (09:09→23:10)
[2018-12-08] MEDS: METHOCARBAMOL 500 MG TABLET PO PRN (09:09)
[2018-12-08] MEDS: cloNIDine HCL 0.1 MG TABLET PO PRN ×3 (09:09→23:14)
[2018-12-08] MEDS: PRENATAL VITAMINS W/ FOLIC ACID TABLET (FP) PO SCH (09:35)
[2018-12-08] MEDS ORDERED: METHADONE HCL 10 MG TABLET (FOR DETOX USE ONLY) PO ONE (10:00)
[2018-12-08 10:51] LABS: ALBUMIN 3.1 g/dl (3.4-5.0); ALK PHOS 80 U/L (45-117); ANION GAP 7 MMOL/L (8-16); BILIRUBIN,TOTAL 0.2 mg/dL (0.2-1); BLOOD UREA NITROGEN 10 mg/dL (7-18); CALCIUM 8.5 mg/dL (8.5-10.1); CHLORIDE 106 mmol/L (98-107); CO2 27 mmol/L (21-32); CREATININE 0.7 mg/dL (0.55-1.3); GLUCOSE,RANDOM 84 mg/dL (74-106); POTASSIUM 4.5 mmol/L (3.5-5.1); SGOT/AST 28 U/L (15-37); SGPT/ALT 40 U/L (13-61); SODIUM 139 mmol/L (136-145); TOT PROT 7.2 g/dl (6.4-8.2)
[2018-12-08 10:57] LABS: HEMATOCRIT 37.1 % (35.4-49); HEMOGLOBIN 12.5 GM/dL (11.7-16.9); MCH 29.2 pg (25.7-33.7); MCHC 33.7 g/dl (32.0-35.9); MEAN CELL VOLUME 86.5 fl (80-96); MEAN PLT VOLUME 7.8 fl (7.5-11.1); PLATELET COUNT 403 K/MM3 (134-434); RBC 4.29 M/mm3 (4.00-5.60); RDW 13.1 % (11.9-15.9); WHITE BLOOD COUNT 7.8 K/mm3 (4.0-10.0)
[2018-12-08] MEDS: NICOTINE 21 MG/24 HOURS TOPICAL PATCH TD SCH (11:08)
--- NOTE | 2018-12-08 11:48 | PN ---
BHS COWS - Scale Resting Pulse: 0= [place] 80 or Below Sweatin= Chills/Flushing Restless Observation: 1= Difficult to Sit Still Pupil Size: 1= Pupils >than Normal Bone or Joint Aches: 2= Severe Diffuse Aches Runny Nose/ Eye Tearin= Runny Nose/Eyes GI Upset > 30mins: 2= Nausea/Diarrhea Tremor Observation of Outstretched Hands: 2= Slight Tremor Visible Yawning Observation: 2= >3x During Session Anxiety or Irritability: 2=Irritable/Anxious Goose Flesh Skin: 0=Smooth Skin COWS Score: 15 BHS Progress Note (SOAP) Subjective: alert,irritable,anxious,interrupted sleep,pain in the body and back,tremor Objective: 12/08/18 11:47 Vital Signs Temperature 96.6 F L 12/08/18 09:28 Pulse Rate 73 12/08/18 09:28 Respiratory Rate 16 12/08/18 09:28 Blood Pressure 180/107 H 12/08/18 09:28 O2 Sat by Pulse Oximetry (%) Assessment: 12/08/18 11:48 withdrawal symptom 12/08/18 11:52 patient stated he drink occasionally ,twice a week,not every day drinking but use heroin and cocaine iv every day Plan: continue detox,methadone regimen,valium 10 mgs po q 4hrs prn for 72 hrs
[2018-12-08 14:57] LABS: URINE APPEARANCE CLOUDY; URINE BILIRUBIN NEGATIVE (NEGATIVE); URINE COLOR YELLOW; URINE GLUCOSE (UA) NEGATIVE (NEGATIVE); URINE KETONE NEGATIVE (NEGATIVE); URINE LEUK ESTERASE NEGATIVE (NEGATIVE); URINE NITRITE NEGATIVE (NEGATIVE); URINE PROTEIN NEGATIVE (NEGATIVE); URINE UROBILINOGEN 0.2 mg/dL (0.2-1.0)
[2018-12-08] MEDS: THIAMINE HCL 100 MG TABLET (FP) PO SCH (23:10)
[2018-12-09] MEDS: cloNIDine HCL 0.1 MG TABLET PO PRN ×3 (04:55→22:43)
[2018-12-09] MEDS: diazePAM 5 MG TABLET PO PRN ×4 (04:55→19:11)
[2018-12-09] MEDS: AMOX TR/POT CLAV 875MG/125MG TABLETS (FP) PO SCH ×2 (07:59→17:59)
[2018-12-09] MEDS ORDERED: METHADONE HCL 10 MG TABLET (FOR DETOX USE ONLY) PO ONE (10:00)
[2018-12-09] MEDS: NICOTINE 21 MG/24 HOURS TOPICAL PATCH TD SCH (10:08)
[2018-12-09] MEDS: PRENATAL VITAMINS W/ FOLIC ACID TABLET (FP) PO SCH (10:08)
--- NOTE | 2018-12-09 10:34 | PN ---
S COWS - Scale Resting Pulse: 1= [place] 81-100 Sweatin= Chills/Flushing Restless Observation: 1= Difficult to Sit Still Pupil Size: 1= Pupils >than Normal Bone or Joint Aches: 2= Severe Diffuse Aches Runny Nose/ Eye Tearin= Runny Nose/Eyes GI Upset > 30mins: 2= Nausea/Diarrhea Tremor Observation of Outstretched Hands: 2= Slight Tremor Visible Yawning Observation: 2= >3x During Session Anxiety or Irritability: 2=Irritable/Anxious Goose Flesh Skin: 0=Smooth Skin COWS Score: 16 S Progress Note (SOAP) Subjective: alert,irritable,anxious,interrupted sleep,pain in the body,anxious Objective: 12/09/18 10:33 Vital Signs Temperature 97.3 F L 12/09/18 09:56 Pulse Rate 83 12/09/18 09:56 Respiratory Rate 20 12/09/18 09:56 Blood Pressure 144/75 12/09/18 09:56 O2 Sat by Pulse Oximetry (%) 12/09/18 10:34 Laboratory Last Values WBC 7.8 K/mm3 (4.0-10.0) 12/08/18 07:00 RBC 4.29 M/mm3 (4.00-5.60) 12/08/18 07:00 Hgb 12.5 GM/dL (11.7-16.9) 12/08/18 07:00 Hct 37.1 % (35.4-49) 12/08/18 07:00 MCV 86.5 fl (80-96) 12/08/18 07:00 MCH 29.2 pg (25.7-33.7) 12/08/18 07:00 MCHC 33.7 g/dl (32.0-35.9) 12/08/18 07:00 RDW 13.1 % (11.9-15.9) 12/08/18 07:00 Plt Count 403 K/MM3 (134-434) 12/08/18 07:00 MPV 7.8 fl (7.5-11.1) 12/08/18 07:00 Sodium 139 mmol/L (136-145) 12/08/18 07:00 Potassium 4.5 mmol/L (3.5-5.1) 12/08/18 07:00 Chloride 106 mmol/L (98-107) 12/08/18 07:00 Carbon Dioxide 27 mmol/L (21-32) 12/08/18 07:00 Anion Gap 7 MMOL/L (8-16) L 12/08/18 07:00 BUN 10 mg/dL (7-18) 12/08/18 07:00 Creatinine 0.7 mg/dL (0.55-1.3) 12/08/18 07:00 Creat Clearance w eGFR 129.09 (>60) 12/08/18 07:00 Random Glucose 84 mg/dL (74-106) 12/08/18 07:00 Calcium 8.5 mg/dL (8.5-10.1) 12/08/18 07:00 Total Bilirubin 0.2 mg/dL (0.2-1) 12/08/18 07:00 AST 28 U/L (15-37) 12/08/18 07:00 ALT 40 U/L (13-61) 12/08/18 07:00 Alkaline Phosphatase 80 U/L (45-117) 12/08/18 07:00 Total Protein 7.2 g/dl (6.4-8.2) 12/08/18 07:00 Albumin 3.1 g/dl (3.4-5.0) L 12/08/18 07:00 Urine Color Yellow 12/08/18 11:40 Urine Appearance Cloudy 12/08/18 11:40 Urine pH 7.0 (5.0-8.0) 12/08/18 11:40 Ur Specific [place] 1.016 (1.010-1.035) 12/08/18 11:40 Urine Protein Negative (NEGATIVE) 12/08/18 11:40 Urine Glucose (UA) Negative (NEGATIVE) 12/08/18 11:40 Urine Ketones Negative (NEGATIVE) 12/08/18 11:40 Urine Blood Negative (NEGATIVE) 12/08/18 11:40 Urine Nitrite Negative (NEGATIVE) 12/08/18 11:40 Urine Bilirubin Negative (NEGATIVE) 12/08/18 11:40 Urine Urobilinogen 0.2 mg/dL (0.2-1.0) 12/08/18 11:40 Ur Leukocyte Esterase Negative (NEGATIVE) 12/08/18 11:40 RPR Titer Nonreactive (NONREACTIVE) 12/08/18 07:00 HIV 1&2 Antibody Screen Negative 12/08/18 07:00 HIV P24 Antigen Negative 12/08/18 07:00 Assessment: 12/09/18 10:34 withdrawal symptom Plan: continue detox
[2018-12-09] MEDS: hydrOXYzine PAMOATE 50 MG CAPSULE (FP) PO PRN ×3 (11:54→19:11)
[2018-12-09] MEDS: METHOCARBAMOL 500 MG TABLET PO PRN (22:43)
[2018-12-09] MEDS: traZODone HCL 100 MG TABLET (FP) PO PRN (22:43)
[2018-12-09] MEDS: THIAMINE HCL 100 MG TABLET (FP) PO SCH (22:43)
[2018-12-10] MEDS: diazePAM 5 MG TABLET PO PRN ×5 (04:51→22:04)
[2018-12-10] MEDS: hydrOXYzine PAMOATE 50 MG CAPSULE (FP) PO PRN ×3 (04:51→15:22)
[2018-12-10] MEDS: AMOX TR/POT CLAV 875MG/125MG TABLETS (FP) PO SCH ×2 (06:26→17:26)
[2018-12-10] MEDS: METHOCARBAMOL 500 MG TABLET PO PRN (09:08)
[2018-12-10] MEDS ORDERED: METHADONE HCL 10 MG TABLET (FOR DETOX USE ONLY) PO ONE (10:00)
[2018-12-10] MEDS: PRENATAL VITAMINS W/ FOLIC ACID TABLET (FP) PO SCH (10:45)
[2018-12-10] MEDS: NICOTINE 21 MG/24 HOURS TOPICAL PATCH TD SCH (10:46)
--- NOTE | 2018-12-10 13:17 | PN ---
[facility] Progress Note (SOAP) Subjective: Muscle aches and weakness, mild tremors and irritability Objective: 12/10/18 13:16 Vital Signs - 8 hr 12/10/18 12/10/18 08:27 09:41 Temperature 96.1 F L 96.6 F L Pulse Rate 83 90 Respiratory 20 16 Rate Blood Pressure 139/82 127/67 Laboratory Last Values WBC 7.8 K/mm3 (4.0-10.0) 12/08/18 07:00 RBC 4.29 M/mm3 (4.00-5.60) 12/08/18 07:00 Hgb 12.5 GM/dL (11.7-16.9) 12/08/18 07:00 Hct 37.1 % (35.4-49) 12/08/18 07:00 MCV 86.5 fl (80-96) 12/08/18 07:00 MCH 29.2 pg (25.7-33.7) 12/08/18 07:00 MCHC 33.7 g/dl (32.0-35.9) 12/08/18 07:00 RDW 13.1 % (11.9-15.9) 12/08/18 07:00 Plt Count 403 K/MM3 (134-434) 12/08/18 07:00 MPV 7.8 fl (7.5-11.1) 12/08/18 07:00 Sodium 139 mmol/L (136-145) 12/08/18 07:00 Potassium 4.5 mmol/L (3.5-5.1) 12/08/18 07:00 Chloride 106 mmol/L (98-107) 12/08/18 07:00 Carbon Dioxide 27 mmol/L (21-32) 12/08/18 07:00 Anion Gap 7 MMOL/L (8-16) L 12/08/18 07:00 BUN 10 mg/dL (7-18) 12/08/18 07:00 Creatinine 0.7 mg/dL (0.55-1.3) 12/08/18 07:00 Creat Clearance w eGFR 129.09 (>60) 12/08/18 07:00 Random Glucose 84 mg/dL (74-106) 12/08/18 07:00 Calcium 8.5 mg/dL (8.5-10.1) 12/08/18 07:00 Total Bilirubin 0.2 mg/dL (0.2-1) 12/08/18 07:00 AST 28 U/L (15-37) 12/08/18 07:00 ALT 40 U/L (13-61) 12/08/18 07:00 Alkaline Phosphatase 80 U/L (45-117) 12/08/18 07:00 Total Protein 7.2 g/dl (6.4-8.2) 12/08/18 07:00 Albumin 3.1 g/dl (3.4-5.0) L 12/08/18 07:00 Urine Color Yellow 12/08/18 11:40 Urine Appearance Cloudy 12/08/18 11:40 Urine pH 7.0 (5.0-8.0) 12/08/18 11:40 Ur Specific [place] 1.016 (1.010-1.035) 12/08/18 11:40 Urine Protein Negative (NEGATIVE) 12/08/18 11:40 Urine Glucose (UA) Negative (NEGATIVE) 12/08/18 11:40 Urine Ketones Negative (NEGATIVE) 12/08/18 11:40 Urine Blood Negative (NEGATIVE) 12/08/18 11:40 Urine Nitrite Negative (NEGATIVE) 12/08/18 11:40 Urine Bilirubin Negative (NEGATIVE) 12/08/18 11:40 Urine Urobilinogen 0.2 mg/dL (0.2-1.0) 12/08/18 11:40 Ur Leukocyte Esterase Negative (NEGATIVE) 12/08/18 11:40 RPR Titer Nonreactive (NONREACTIVE) 12/08/18 07:00 HIV 1&2 Antibody Screen Negative 12/08/18 07:00 HIV P24 Antigen Negative 12/08/18 07:00 Labs noted Assessment: 12/10/18 13:17 Withdrawal sx Plan: Continue detox
[2018-12-10] MEDS: NICOTINE POLACRILEX 4 MG GUM BUC PRN ×2 (13:24→22:06)
--- NOTE | 2018-12-10 14:35 | PN ---
B[facility] Progress Note Note: Patient is on Augmentin for infected left wound r/t IVDU. Bacitracin has been ordered to be applied BID.
[2018-12-10] MEDS ORDERED: BACITRACIN 15 GM TUBE TOPICAL OINTMENT TP ONE (15:29)
[2018-12-10] MEDS ORDERED: BACITRACIN 0.9 GM PACKET TP SCH (22:00)
[2018-12-10] MEDS: traZODone HCL 100 MG TABLET (FP) PO PRN (22:02)
[2018-12-10] MEDS: THIAMINE HCL 100 MG TABLET (FP) PO SCH (22:02)
[2018-12-10 22:20] VITALS: BP 139/90; PULSE 99; TEMP 97.5
[2018-12-11] MEDS ORDERED: METHADONE HCL 5 MG TABLET (FOR DETOX USE ONLY) PO ONE (06:00)
[2018-12-11] MEDS: AMOX TR/POT CLAV 875MG/125MG TABLETS (FP) PO SCH (07:00)
== END 2018-12-11 07:00 | disposition home or self-care (01) | DRG 773 ==
LOC: YASAS 13:15 → Y6N 17:16
PROVIDERS: ADMIT Surgery; ATTEND Surgery
PROC: HZ2ZZZZ Detoxification Services for Substance Abuse Treatment (ICD-10-PCS; principal; 2018-12-07)
DX: F11.23 Opioid dependence with withdrawal (principal); F10.230 Alcohol dependence with withdrawal, uncomplicated; F14.20 Cocaine dependence, uncomplicated; F17.210 Nicotine dependence, cigarettes, uncomplicated; L03.114 Cellulitis of left upper limb
CPT/HCPCS: 36415; 80053; 81003; 85027; 86593; 87389; J0735

== ENCOUNTER 2019-03-25 10:01 | Inpatient (IN) | payer OTHER ==
[2019-03-25 11:43] VITALS: BMI 22.0
--- NOTE | 2019-03-25 13:17 | HP ---
COWS - Scale Resting Pulse: 0= [place] 80 or Below Sweatin= Chills/Flushing Restless Observation: 1= Difficult to Sit Still Pupil Size: 0= Normal to Room Light Bone or Joint Aches: 2= Severe Diffuse Aches Runny Nose/ Eye Tearin= Nasal Congestion GI Upset > 30mins: 1= Stomach Cramp Tremor Observation: 2= Slight Tremor Visible Yawning Observation: 1= 1-2x During Session Anxiety or Irritability: 2=Irritable/Anxious Goose Flesh Skin: 3=Piloerection COWS Score: 14 CIWA Score Nausea/Vomitin Muscle Tremors: 2 Anxiety: 2 Agitation: 1-Slight > Activity Paroxysmal Sweats: 2 Orientation: 0-Oriented Tacttile Disturbances: 1-Very Mild Itch/Numbness Auditory Disturbances: 1-Very Mild Visual Disturbances: 1-Very Mild Sensitivity Headache: 1-Very Mild CIWA-Ar Total Score: 13 - Admission Criteria OASAS Guidelines: Admission for Medically Managed Detox: Requires at least one of the followin. CIWA greater than 12 2. Seizures within the past 24 hours 3. Delirium tremens within the past 24 hours 4. Hallucinations within the past 24 hours 5. Acute intervention needed for co occurring medical disorder 6. Acute intervention needed for co occurring psychiatric disorder 7. Severe withdrawal that cannot be handled at a lower level of care (continued vomiting, continued diarrhea, abnormal vital signs) requiring intravenous medication and/or fluids 8. Patient presents the following: CIWA greater than 12 Admission Criteria Met: Admission criteria met Admission ROS [facility] Chief Complaint: I want to get clean for real, I want to go to rehab. Allergies/Adverse Reactions: Allergies Allergy/AdvReac Type Severity Reaction Status Date / Time No Known Allergies Allergy Verified 03/25/19 11:35 History of Present Illness: Patient is a 34 year old man who presents for detox from alcohol and opiates. His last treatment was on 12/07/18 at [facility]. He denies blackouts or seizure related to intoxication. He was previously on subaxone which he could not tolerate and has since stopped taking. Exam Limitations: No Limitations - Ebola screening Have you traveled outside of the country in the last 21 days: No (N) Have you had contact with anyone from an Ebola affected area: No Have you been sick,other than usual withdrawal symptoms: No Do you have a fever: No - Review of Systems Constitutional: Chills, Weakness EENT: reports: No Symptoms Reported Respiratory: reports: No Symptoms reported Cardiac: reports: No Symptoms Reported GI: reports: Poor Appetite, Abdominal cramping : reports: No Symptoms Reported Musculoskeletal: reports: Back Pain, Muscle Pain, Muscle Weakness Integumentary: reports: Sweating Neuro: reports: Headache, Tremors Endocrine: reports: No Symptoms Reported Hematology: reports: No Symptoms Reported Psychiatric: reports: No Sypmtoms Reported Other Systems: Reviewed and Negative Patient History - Patient Medical History Hx Anemia: No Hx Asthma: No Hx Chronic Obstructive Pulmonary Disease (COPD): No Hx Cancer: No Hx Cardiac Disorders: No Hx Congestive Heart Failure: No Hx Hypertension: No Hx Hypercholesterolemia: No Hx Pacemaker: No HX Cerebrovascular Accident: No Hx Seizures: No Hx Dementia: No Hx Diabetes: No Hx Gastrointestinal Disorders: No Hx Liver Disease: No Hx Genitourinary Disorders: No Hx Sexually Transmitted Disorders: No Hx Renal Disease (ESRD): No Hx Thyroid Disease: No Hx Human Immunodeficiency Virus (HIV): No Hx Hepatitis C: No Hx Depression: No Hx Suicide Attempt: No Hx Bipolar Disorder: No Hx Schizophrenia: No - Patient Surgical History Past Surgical History: Yes Hx Neurologic Surgery: No Hx Cataract Extraction: No Hx Cardiac Surgery: No Hx Lung Surgery: No Hx Breast Surgery: No Hx Breast Biopsy: No Hx Abdominal Surgery: No Hx Appendectomy: No Hx Cholecystectomy: No Hx Genitourinary Surgery: No Hx Section: No Hx Orthopedic Surgery: Yes (left arm ) Anesthesia Reaction: No - PPD History Previous Implant?: Yes Documented Results: Negative w/proof Implanted On Prior [facility] Admission?: Yes Date: 06/23/17 PPD to be Administered?: No - Smoking Cessation Smoking history: Current every day smoker Have you smoked in the past 12 months: Yes Aproximately how many cigarettes per day: 20 Hx Chewing Tobacco Use: No Initiated information on smoking cessation: Yes 'Breaking Loose' booklet given: 03/25/19 - Substances abused Barbiturate Substance route: Inhalation Frequency: Daily Amount used: 3mg Age of first use: 24 Date of last use: 03/25/19 Heroin Substance route: Injection Frequency: Daily Amount used: 30 bags/day Age of first use: 28 Date of last use: 03/25/19 Cocaine Substance route: Smoking Frequency: Daily Amount used: 2 grams/dY Age of first use: 24 Date of last use: 03/25/19 Alcohol Other (specify): Vodka Substance route: Oral Frequency: Daily Amount used: 1 pint Age of first use: 28 Date of last use: 03/25/19 Family Disease History - Family Disease History Family Disease History: Other: Father (Opiate dependence ) Admission Physical Exam [facility] - Vital Signs Vital Signs: Vital Signs - 24 hr 03/25/19 11:29 Temperature 97.9 F Pulse Rate 57 L Respiratory 18 Rate Blood Pressure 127/79 - Physical General Appearance: Yes: No Apparent Distress HEENTM: Yes: EOMI, Hearing grossly Normal, Normal ENT Inspection, Normocephalic , Normal Voice, Pharynx Normal Respiratory: Yes: Chest Non-Tender, Lungs Clear, Normal Breath Sounds, No Respiratory Distress, No Accessory Muscle Use Neck: Yes: No masses,lesions,Nodules, Supple Breast: Yes: Breast Exam Deferred Cardiology: Yes: Regular Rhythm, Regular Rate, S1, S2 Abdominal: Yes: Normal Bowel Sounds, Non Tender Genitourinary: Yes: Within Normal Limits Back: Yes: Normal Inspection Musculoskeletal: Yes: full range of Motion, Gait Steady, Pelvis Stable Extremities: Yes: Non-Tender, Tremors Neurological: Yes: fashion styling intern II-XII NML intact, Fully Oriented, Alert, Motor Strength 5/5, Normal Mood/Affect, Normal Response Integumentary: Yes: Clammy, Track Serrano Lymphatic: Yes: Within Normal Limits - Diagnostic (1) Uncomplicated alcohol withdrawal Current Visit: Yes Status: Acute (2) cannabis dependence Current Visit: No Status: Active (3) Cocaine dependence, uncomplicated Current Visit: No Status: Acute (4) Nicotine dependence Current Visit: No Status: Acute Qualifiers: Nicotine product type: cigarettes Substance use status: uncomplicated Qualified Code(s): F17.210 - Nicotine dependence, cigarettes, uncomplicated (5) Opioid dependence with withdrawal Current Visit: Yes Status: Acute Cleared for Admission [facility] - Detox or Rehab [facility] Level of Care: Medically Managed Detox Regimen/Protocol: Methadone/Librium Claeared for Rehab Admission: No Urine Drug Screen - Control Is test valid?: Yes Inpatient Rehab Admission - Rehab Decision to Admit Inpatient rehab admission?: No
[2019-03-25] MEDS ORDERED: MAGNESIUM CITRATE 300 ML BOTTLE PO PRN (13:29)
[2019-03-25] MEDS ORDERED: MENTHOL/PHENOL 1 EACH UD MM PRN (13:29)
[2019-03-25] MEDS ORDERED: IBUPROFEN 400 MG TABLET (FP) PO PRN (13:29)
[2019-03-25] MEDS ORDERED: BISMUTH SUBSALICYLATE 524 MG/30 ML UD PO PRN (13:29)
[2019-03-25] MEDS ORDERED: METHOCARBAMOL 500 MG TABLET PO PRN (13:29)
[2019-03-25] MEDS ORDERED: MAGNESIUM HYDROX 2400MG/30ML ORAL SUSPENSION 30 ML CUP PO PRN (13:29)
[2019-03-25] MEDS ORDERED: ACETAMINOPHEN 325 MG TABLET (FP) PO PRN ×2 (13:29)
[2019-03-25] MEDS ORDERED: NICOTINE POLACRILEX 2 MG GUM BUC PRN (13:29)
[2019-03-25] MEDS ORDERED: NALOXONE HCL 0.4 MG/ML VIAL IM PRN (13:29)
[2019-03-25] MEDS ORDERED: MAG HYDROX/AL HYDROX/SIMETH 30 ML UNIT-DOSE CUP PO PRN (13:29)
[2019-03-25] MEDS ORDERED: METHADONE HCL 10 MG TABLET (FOR DETOX USE ONLY) PO ONE (15:15)
[2019-03-25] MEDS ORDERED: chlordiazePOXIDE HCL 25 MG CAPSULE PO ONE (15:15)
[2019-03-25] MEDS: NICOTINE 14 MG/24 HOURS TOPICAL PATCH TD SCH (15:48)
[2019-03-25] MEDS: MELATONIN 5 MG TABLETS PO PRN (21:04)
[2019-03-25] MEDS: clonazePAM 0.5 MG TABLET PO PRN (21:04)
[2019-03-25] MEDS: chlordiazePOXIDE HCL 25 MG CAPSULE PO SCH (21:04)
[2019-03-25] MEDS: cloNIDine HCL 0.1 MG TABLET PO PRN (21:04)
[2019-03-25] MEDS: THIAMINE HCL 100 MG TABLET (FP) PO SCH (23:57)
[2019-03-26] MEDS: clonazePAM 0.5 MG TABLET PO PRN ×3 (03:53→20:13)
[2019-03-26] MEDS: cloNIDine HCL 0.1 MG TABLET PO PRN ×4 (03:53→20:13)
[2019-03-26] MEDS: chlordiazePOXIDE HCL 10 MG CAPSULE PO PRN ×2 (03:53→16:32)
[2019-03-26] MEDS: chlordiazePOXIDE HCL 25 MG CAPSULE PO SCH ×3 (06:24→20:13)
[2019-03-26] MEDS: PRENATAL VITAMINS W/ FOLIC ACID TABLET (FP) PO SCH (09:31)
[2019-03-26] MEDS: NICOTINE 14 MG/24 HOURS TOPICAL PATCH TD SCH (09:31)
[2019-03-26] MEDS ORDERED: METHADONE HCL 5 MG TABLET (FOR DETOX USE ONLY) PO ONE (10:00)
[2019-03-26 10:09] LABS: ALBUMIN 3.2 g/dl (3.4-5.0); BILIRUBIN,TOTAL 0.2 mg/dL (0.2-1); BLOOD UREA NITROGEN 10.6 mg/dL (7-18); CALCIUM 8.8 mg/dL (8.5-10.1); CREATININE 0.9 mg/dL (0.55-1.3); POTASSIUM 4.2 mmol/L (3.5-5.1); TOT PROT 6.7 g/dl (6.4-8.2)
[2019-03-26 10:30] LABS: HEMATOCRIT 39.6 % (35.4-49); HEMOGLOBIN 13.4 GM/dL (11.7-16.9); MCH 28.9 pg (25.7-33.7); MEAN CELL VOLUME 85.2 fl (80-96); MEAN PLT VOLUME 8.6 fl (7.5-11.1); RBC 4.64 M/mm3 (4.00-5.60); RDW 13.8 % (11.9-15.9); WHITE BLOOD COUNT 6.3 K/mm3 (4.0-10.0)
[2019-03-26 10:46] LABS: PLATELET COUNT 314 K/MM3 (134-434)
--- NOTE | 2019-03-26 15:46 | PN ---
S CIWA - CIWA Score Nausea/Vomitin-Mild Nausea/No Vomiting Muscle Tremors: 4-Moderate,w/Arms Extend Anxiety: 3 Agitation: 3 Paroxysmal Sweats: 3 Orientation: 0-Oriented Tacttile Disturbances: 0-None Auditory Disturbances: 0-None Visual Disturbances: 0-None Headache: 0-None Present CIWA-Ar Total Score: 14 [facility] COWS - Scale Resting Pulse: 1= [place] 81-100 Sweatin= Chills/Flushing Restless Observation: 3= Extraneous Movement Pupil Size: 0= Normal to Room Light Bone or Joint Aches: 2= Severe Diffuse Aches Runny Nose/ Eye Tearin= Runny Nose/Eyes GI Upset > 30mins: 2= Nausea/Diarrhea Tremor Observation of Outstretched Hands: 2= Slight Tremor Visible Yawning Observation: 0= None Anxiety or Irritability: 2=Irritable/Anxious Goose Flesh Skin: 0=Smooth Skin COWS Score: 15 [facility] Progress Note (SOAP) Subjective: Sweating, chills, tremor, body ache, runny nose, feels weak, teary eyes, interrupted sleep. Patient requesting inpatient rehab. As per patient, he will continue to use drugs if he doesn't get accepted for rehab. Patient instructed to speak with his counselor tomorrow regarding his request for inpatient rehab. Objective: 03/26/19 15:45 Last Vital Signs Temp Pulse Resp BP Pulse Ox 98.3 F 84 18 129/89 03/26/19 14:08 03/26/19 14:08 03/26/19 14:08 03/26/19 14:08 Laboratory Tests 03/26/19 03/26/19 03/26/19 07:50 07:50 07:50 WBC 6.3 RBC 4.64 Hgb 13.4 Hct 39.6 MCV 85.2 MCH 28.9 MCHC 34.0 RDW 13.8 Plt Count 314 D MPV 8.6 D Sodium 137 Potassium 4.2 Chloride 106 Carbon Dioxide 27 Anion Gap 4 L BUN 10.6 Creatinine 0.9 Est GFR (CKD-EPI)AfAm 127.80 Est GFR (CKD-EPI)NonAf 110.27 Random Glucose 92 Calcium 8.8 Total Bilirubin 0.2 AST 12 L ALT 23 Alkaline Phosphatase 64 Total Protein 6.7 Albumin 3.2 L RPR Titer Nonreactive Labs reviewed Assessment: 03/26/19 15:46 Withdrawal symptoms Plan: Continue detox Encouraged PO water intake
[2019-03-26] MEDS: THIAMINE HCL 100 MG TABLET (FP) PO SCH (23:56)
[2019-03-27] MEDS: MELATONIN 5 MG TABLETS PO PRN (01:00)
[2019-03-27] MEDS ORDERED: chlordiazePOXIDE 5 MG CAPSULE PO SCH (05:00)
[2019-03-27] MEDS: clonazePAM 0.5 MG TABLET PO PRN (08:34)
[2019-03-27] MEDS ORDERED: cloNIDine HCL 0.1 MG TABLET PO PRN (08:41)
[2019-03-27] MEDS ORDERED: chlordiazePOXIDE HCL 10 MG CAPSULE PO PRN (08:41)
[2019-03-27 09:16] VITALS: BP 139/88; PULSE 80; TEMP 97.7
[2019-03-27] MEDS ORDERED: METHADONE HCL 5 MG TABLET (FOR DETOX USE ONLY) ONE (09:36)
[2019-03-27] MEDS ORDERED: METHADONE HCL 10 MG TABLET (FOR DETOX USE ONLY) ONE (09:36)
[2019-03-27] MEDS: PRENATAL VITAMINS W/ FOLIC ACID TABLET (FP) PO SCH (09:57)
[2019-03-27] MEDS ORDERED: METHADONE HCL 10 MG TABLET (FOR DETOX USE ONLY) PO ONE (10:00)
[2019-03-27] MEDS ORDERED: METHADONE (DETOX) 10 MG, METHADONE (DETOX) 5 MG PO ONE (10:00)
[2019-03-27] MEDS: NICOTINE 14 MG/24 HOURS TOPICAL PATCH TD SCH (10:01)
--- NOTE | 2019-03-27 10:53 | PN ---
S Progress Note Note: pt arrived in withdrawal sx pt c/o of withdrawal s/s and aggressive symptomatic management attempted however pt in spite of extensive motivational counseling regarding the risk of relapse, seizures, OD, /loss, pt chose to sign out AMA.
--- NOTE | 2019-03-27 11:54 | DS ---
[facility] Detox Discharge Summary Admission Date: 03/25/19 Discharge Date: 03/27/19 - History Present History: Alcohol Dependence, Opioid Dependence Pertinent Past History: pt arrived in withdrawal sx Laboratory Tests 03/26/19 03/26/19 03/26/19 07:50 07:50 07:50 WBC 6.3 RBC 4.64 Hgb 13.4 Hct 39.6 MCV 85.2 MCH 28.9 MCHC 34.0 RDW 13.8 Plt Count 314 D MPV 8.6 D Sodium 137 Potassium 4.2 Chloride 106 Carbon Dioxide 27 Anion Gap 4 L BUN 10.6 Creatinine 0.9 Est GFR (CKD-EPI)AfAm 127.80 Est GFR (CKD-EPI)NonAf 110.27 Random Glucose 92 Calcium 8.8 Total Bilirubin 0.2 AST 12 L ALT 23 Alkaline Phosphatase 64 Total Protein 6.7 Albumin 3.2 L RPR Titer Nonreactive - Physical Exam Results Vital Signs: Vital Signs Temperature 97.7 F 03/27/19 09:15 Pulse Rate 80 03/27/19 09:15 Respiratory Rate 16 03/27/19 09:15 Blood Pressure 139/88 03/27/19 09:15 O2 Sat by Pulse Oximetry (%) - Treatment Hospital Course: Discharged Condition Good - Medication Discharge Medications: Ambulatory Orders Suboxone 8 mg-2 mg Sl Tablets 8 mg SL DAILY 03/25/19 - Diagnosis (1) Opioid dependence with withdrawal Current Visit: Yes Status: Chronic (2) Uncomplicated alcohol withdrawal Current Visit: Yes Status: Chronic (3) acute bronchitis Current Visit: No Status: Active (4) Cocaine dependence, uncomplicated Current Visit: Yes Status: Chronic (5) Nicotine dependence Current Visit: Yes Status: Chronic Qualifiers: Nicotine product type: cigarettes Substance use status: uncomplicated Qualified Code(s): F17.210 - Nicotine dependence, cigarettes, uncomplicated (6) Substance induced mood disorder Current Visit: No Status: Acute (7) Substance-induced sleep disorder Current Visit: No Status: Acute - AMA Did Patient Leave Against Medical Advice: Yes (declined aftercare; referral provided)
[2019-03-27] MEDS ORDERED: chlordiazePOXIDE HCL 25 MG CAPSULE PO SCH (13:00)
[2019-03-28] MEDS ORDERED: chlordiazePOXIDE HCL 10 MG CAPSULE PO PRN
[2019-03-28] MEDS ORDERED: chlordiazePOXIDE 5 MG CAPSULE PO SCH (05:00)
[2019-03-28] MEDS ORDERED: chlordiazePOXIDE HCL 10 MG CAPSULE PO SCH (05:00)
[2019-03-28] MEDS ORDERED: METHADONE HCL 5 MG TABLET (FOR DETOX USE ONLY) PO ONE (06:00)
[2019-03-28] MEDS ORDERED: METHADONE HCL 10 MG TABLET (FOR DETOX USE ONLY) PO ONE (10:00)
[2019-03-29] MEDS ORDERED: chlordiazePOXIDE HCL 10 MG CAPSULE PO ONE ×2 (05:00)
[2019-03-29] MEDS ORDERED: chlordiazePOXIDE 5 MG CAPSULE PO SCH (05:00)
[2019-03-29] MEDS ORDERED: METHADONE HCL 5 MG TABLET (FOR DETOX USE ONLY) PO ONE (06:00)
[2019-03-30] MEDS ORDERED: chlordiazePOXIDE HCL 10 MG CAPSULE PO ONE (05:00)
== END 2019-03-27 11:07 | disposition home or self-care (01) | DRG 773 ==
LOC: YASAS 10:01 → Y6N 15:01
PROVIDERS: ADMIT Surgery; ATTEND Surgery
PROC: HZ2ZZZZ Detoxification Services for Substance Abuse Treatment (ICD-10-PCS; principal; 2019-03-25)
DX: F11.23 Opioid dependence with withdrawal (principal); F10.230 Alcohol dependence with withdrawal, uncomplicated; F13.20 Sedative, hypnotic or anxiolytic dependence, uncomplicated; F14.20 Cocaine dependence, uncomplicated; F12.20 Cannabis dependence, uncomplicated; F17.210 Nicotine dependence, cigarettes, uncomplicated; F19.282 Other psychoactive substance dependence with psychoactive substance-induced sleep disorder; F19.24 Other psychoactive substance dependence with psychoactive substance-induced mood disorder; J20.9 Acute bronchitis, unspecified
CPT/HCPCS: 36415; 80053; 85027; 86480; 86593; J0735